=== PATIENT | male | born 1960 | race Caucasian/White ===

== ENCOUNTER 2016-09-17 07:06 | Day surgery (SDC) | payer BC, MEDICARE ==
[2016-09-15 16:27] VITALS: BMI 28.8
[~2016-09-17 07:06] MED LIST: LACTATED RINGERS 1,000 ML IV SCH; LIDOCAINE 1% 20 ML VIAL (10MG/ML) FOR IV START INTRADERMA PRN
[2016-09-17 07:21] VITALS: TEMP 97.2
[2016-09-17 07:28] LABS: Glucose,Whole Blood 82 mg/dL (75-99)
[2016-09-17] MEDS ORDERED: LACTATED RINGERS 1,000 ML IV ONE (07:28)
[2016-09-17] MEDS ORDERED: fentaNYL (PF) 50 MCG/ML 2 ML AMP ONE (07:45)
[2016-09-17] MEDS ORDERED: GLUCAGON 1 MG/ML VIAL ONE (07:45)
[2016-09-17] MEDS ORDERED: MIDAZOLAM 2 MG/2 ML VIAL ONE (07:45)
[2016-09-17] MEDS ORDERED: PROPOFOL 10 MG/ML 20 ML VIAL IV ONE (07:45)
--- NOTE | 2016-09-17 07:53 | P.GSHP ---
History of Present Illness H&P Date: 09/17/16 Chief Complaint: Screening colonoscopy This a 56-year-old male referred for Dr. greenberg. Patient presents today for screening colonoscopy. Past Medical History Past Medical History: Diabetes Mellitus, Hypertension, Sleep Apnea/CPAP/BIPAP Additional Past Medical History / Comment(s): uses cpap,hx colon polyps,daily steroid,diabetic retinopathy,hx peritonitis with peritoneal dialysis cath. History of Any Multi-Drug Resistant Organisms: None Reported Past Surgical History: Heart Catheterization With Stent Additional Past Surgical History / Comment(s): cardiac stents x 3,pancreas and lt kidney transplant,30 eye laser surgeries for diabetic retinopathy,scar tissue surgery post laser surg to giovani eyes, giovani cataracts,peritoneal dialysis cath insertion and removal, vargas cath insertion and removal, tendon repair. Past Anesthesia/Blood Transfusion Reactions: No Reported Reaction Additional Past Anesthesia/Blood Transfusion Reaction / Comment(s): sister rec hep C from blood transfusion Date of Last Stent Placement:: 2002 Smoking Status: Never smoker Past Alcohol Use History: None Reported Past Drug Use History: None Reported - Past Family History Mother Family Medical History: Cancer, Osteoarthritis (OA) Additional Family Medical History / Comment(s): skin Father Family Medical History: Myocardial Infarction (ID) Medications and Allergies Home Medications Medication Instructions Recorded Confirmed Type Aspirin 81 mg PO DAILY 09/15/16 09/15/16 History Calcitriol [Rocaltrol] 0.25 mcg PO QAM 09/15/16 09/15/16 History Ergocalciferol [Vitamin D2 50,000 units PO WE 09/15/16 09/15/16 History (MANUEL)] Levothyroxine Sodium [Synthroid] 100 mcg PO QAM 09/15/16 09/15/16 History Lisinopril [Prinivil] 5 mg PO QAM 09/15/16 09/15/16 History Metoprolol Succinate (ER) [Toprol 100 mg PO QAM 09/15/16 09/15/16 History Xl] Tacrolimus [Prograf] 1.5 mg PO BID 09/15/16 09/15/16 History amLODIPine [Norvasc] 10 mg PO QAM 09/15/16 09/15/16 History predniSONE 5 mg PO QAM 09/15/16 09/15/16 History Allergies Allergy/AdvReac Type Severity Reaction Status Date / Time [id number] Reductase Allergy muscle Verified 09/15/16 16:06 Inhibitor fatigue and pain Surgical - Exam Vital Signs Temp Pulse Resp BP Pulse Ox 97.2 F L 78 18 153/97 98 09/17/16 07:21 09/17/16 07:21 09/17/16 07:21 09/17/16 07:21 09/17/16 07:21 - General well developed, no distress - Eyes PERRL - ENT normal pinna - Neck no masses - Respiratory normal expansion - Cardiovascular Rhythm: regular - Abdomen Abdomen: soft, non tender Assessment and Plan Plan: We'll perform screening colonoscopy.
--- NOTE | 2016-09-17 08:31 | P.OP ---
Date of Procedure: 09/17/16 Preoperative Diagnosis: Screening colonoscopy Postoperative Diagnosis: Moderate diverticulosis Right colon polyp Transverse colon polyp Procedure(s) Performed: Colonoscopy Anesthesia: MAC Surgeon: Holger Torres Pathology: other (Transverse colon polyp, right colon polyp) Condition: stable Disposition: PACU Description of Procedure: The patient's placed on the endoscopy table in the lateral position. He received IV sedation. Digital rectal exam performed which revealed no abnormalities. The prostate was symmetric without nodules. The flexible colonoscope was then placed patient anus and passed throughout the entire colon. The ileocecal valve was visualized. The cecum was seen and there was a small polyp in the cecum was removed the forcep. The scope was then withdrawn. In the proximal transverse colon there was a large peduncular polyp was removed with a snare and forcep. The scope was then brought back and the distal transverse colon appeared normal. In the descending and sigmoid colon is moderate diverticulosis. There were some diverticuli which had very large lumens. The scope was then brought back the rectum and this appeared normal. Scope was withdrawn for patient..
[2016-09-17 08:41] VITALS: RESP 16
[2016-09-17 08:55] VITALS: BP 130/75; PULSE 65
== END 2016-09-17 09:21 | disposition home or self-care (01) ==
LOC: ORWHC2ENDO 07:06
PROVIDERS: ATTEND Surgery
DX: Z12.11 Encounter for screening for malignant neoplasm of colon (principal); D12.3 Benign neoplasm of transverse colon; D12.0 Benign neoplasm of cecum; K57.30 Diverticulosis of large intestine without perforation or abscess without bleeding; I10 Essential (primary) hypertension; G47.33 Obstructive sleep apnea (adult) (pediatric); E11.319 Type 2 diabetes mellitus with unspecified diabetic retinopathy without macular edema; Z95.5 Presence of coronary angioplasty implant and graft; E07.9 Disorder of thyroid, unspecified; Z79.82 Long term (current) use of aspirin; Z79.52 Long term (current) use of systemic steroids; Z79.899 Other long term (current) drug therapy; Z88.8 Allergy status to other drugs, medicaments and biological substances
CPT/HCPCS: 88305; 45380; 45385; J2250; J1610; J3010; J2704

== ENCOUNTER → 2017-11-03 | Outpatient (CLI) | payer BC ==
--- NOTE | 2017-11-04 06:53 | US ---
EXAMINATION TYPE: US renal transplant w dop DATE OF EXAM: 11/03/2017 COMPARISON: Prior renal ultrasound June 05, 2015 CLINICAL HISTORY: N18.3 Chronic kidney disease. CKD, transplant kidney LLQ 2003 EXAM PERFORMED: Grayscale on [place] kidneys and Doppler duplex and Grayscale imaging of the transplan [place] kidney. EXAM MEASUREMENTS: [place] Right Kidney: 5.6 x 3.0 x 2.9cm [place] Left Kidney: 8.9 x 3.8 x 4.9 Transplant Kidney: 11.4 x 4.5 x 4.8cm Location of transplanted kidney: LLQ ANATOMY: [place] Right Kidney: atrophic with cystic areas noted, largest = 1.1 x 1.0 x 1.1cm [place] Left Kidney: atrophic, difficult to visualize with hypoechoic vascular area upper/mid = 6.5 x 4.5 x 4.5cm Transplant Kidney: appears wnl, arterial and venous flow documented Bladder: appears wnl Bilateral Jets seen: no [place] kidneys remain atrophic or small in size with cortical thinning. No gross hydronephrosis is se en. Technologist [place] 2 small simple appearing cyst right kidney. There is suggestion of large mass occupying upper to mid pole level left kidney on current study and warrants follow-up. Bladder is fel t within normal limits. Transplant kidney left pelvis measures 11.4 cm long axis. No gross hydronephr osis is seen. Technologist identifies arterial phasicity and venous return into transplant. IMPRESSION: Left pelvic transplant remain satisfactory in size without hydronephrosis. Atrophic [place] kidneys re demonstrated. Cannot exclude new solid mass upper pole level left kidney, advise further investigatio n with renal protocol contrast-enhanced CT/MRI if possible.
== END | disposition home or self-care (01) ==
LOC: RADUSWWP 16:10
PROVIDERS: ATTEND Internal Medicine Nephrology
DX: N26.1 Atrophy of kidney (terminal) (principal); N18.3 Chronic kidney disease, stage 3 (moderate); Z94.0 Kidney transplant status
CPT/HCPCS: 76776

== ENCOUNTER → 2017-11-30 | Outpatient (CLI) | payer BC ==
--- NOTE | 2017-11-30 23:44 | CT ---
EXAMINATION TYPE: CT abdomen wo con DATE OF EXAM: 11/30/2017 COMPARISON: Renal ultrasound 11/03/2012 HISTORY: 57-year-old male had abnormal US of nontransplanted kidney. TECHNIQUE: Contiguous axial scanning of the abdomen without IV contrast. Coronal and sagittal reconst ructions performed. CT DLP: 579 mGycm Automated exposure control for dose reduction was used. FINDINGS: Heart normal size without pericardial effusion. Tiny hiatal hernia. Strandy atelectasis or scarring a t the lung bases without pleural effusion. Noncontrast appearance of the liver, gallbladder, adrenal glands, and spleen show no gross abnormalit y. The pancreas is markedly atrophic. There is some additional tissue along the right mid and lower a bdomen possibly representing a transplanted pancreas. Partially visualized left lower quadrant transp lant kidney. The [place] right kidney is markedly atrophic. There is a 1 cm hypodense lesion posterior upper pole r ight kidney and 7 mm hypodense lesion anterior lower pole right kidney. Both are too small for accura te CT characterization and probably represent cysts. There is a rather large rounded lesion within the central right kidney that splays the renal cortex. This measures up to 6.1 cm and has intermediate soft tissue attenuation comparison to evaluate for an y available outside priors. There is no left-sided ureteric dilatation. No dilated small bowel, free fluid, or free air. Mild to moderate stool burden without pericolonic in flammatory change. Tiny fatty umbilical hernia. No mesenteric or retroperitoneal lymphadenopathy identified. Moderate atherosclerotic calcifications within the abdominal aorta. Bones: There is a left L5 hemisacralization and mild degenerative disc disease above at L4-L5. No oss eous destructive process. IMPRESSION: 1. A 6.1 cm lesion in the central left kidney splays the cortex and has intermediate, soft tissue att enuation. A complicated parapelvic cyst and a soft tissue mass are both in the differential. Limited assessment without IV contrast. Consider either follow-up renal mass protocol CT or contrast-enhanced MRI. Clinically, if there is low suspicion for malignancy and there is a preference not to administe r IV contrast in this patient, a three-month follow-up noncontrast CT can be performed. 2. Background of end-stage renal disease of the [place] kidneys. 2 hypodense lesions within the right kidney measuring up to 1 cm likely represent cysts. 3. Left lower quadrant transplant kidney. Suspect a right lower quadrant pancreas transplant.
== END | disposition home or self-care (01) ==
LOC: RADCTMAIN 17:34
PROVIDERS: ATTEND Internal Medicine Nephrology
DX: N28.1 Cyst of kidney, acquired (principal); N18.6 End stage renal disease; N28.89 Other specified disorders of kidney and ureter; Z94.0 Kidney transplant status
CPT/HCPCS: 74150

== ENCOUNTER → 2017-12-31 | Outpatient (CLI) | payer BC ==
[2017-12-31 16:03] LABS: Basophils % (A) 0 %; Eosinophils # (A) 0.1 k/uL (0-0.7); Eosinophils % (A) 2 %; HCT 43.9 % (39.0-53.0); HGB 13.7 gm/dL (13.0-17.5); Lymphocytes # (A) 1.5 k/uL (1.0-4.8); Lymphocytes % (A) 20 %; MCH 28.9 pg (25.0-35.0); MCHC 31.1 g/dL (31.0-37.0); MCV 92.9 fL (80.0-100.0); Mean Platelet Volume 6.9; Monocytes # (A) 0.6 k/uL (0-1.0); Monocytes % (A) 9 %; Neutrophils % (A) 67 %; Platelet Count 233 k/uL (150-450); RBC 4.73 m/uL (4.30-5.90); RDW 14.2 % (11.5-15.5); WBC 7.5 k/uL (3.8-10.6)
--- NOTE | 2017-12-31 16:07 | XR ---
EXAMINATION TYPE: XR chest 2V DATE OF EXAM: 12/31/2017 COMPARISON: NONE HISTORY: Presurgical, hypertension TECHNIQUE: Frontal and lateral views of the chest are obtained. FINDINGS: There is no focal air space opacity, pleural effusion, or pneumothorax seen. The cardiac silhouette size is within normal limits. The osseous structures are intact. IMPRESSION: No acute cardiopulmonary process.
[2017-12-31 16:19] LABS: Calcium 9.1 mg/dL (8.4-10.2); Potassium 4.7 mmol/L (3.5-5.1)
== END | disposition home or self-care (01) ==
LOC: LABPAT 14:26
PROVIDERS: ATTEND Urology
DX: Z01.818 Encounter for other preprocedural examination (principal); Z01.812 Encounter for preprocedural laboratory examination; D41.02 Neoplasm of uncertain behavior of left kidney; E21.3 Hyperparathyroidism, unspecified; E03.9 Hypothyroidism, unspecified; R07.9 Chest pain, unspecified
CPT/HCPCS: 71046; 80048; 85025; 93005

== ENCOUNTER 2018-01-08 11:39 | Inpatient (IN) | payer BC ==
[2018-01-04 14:48] VITALS: BMI 28.0
--- NOTE | 2018-01-08 06:37 | P.GSHP ---
History of Present Illness H&P Date: 01/08/18 Chief Complaint: Left renal mass The patient is a 57-year-old white male who underwent a renal transplant in 2003. The transplant kidney was implanted into the left pelvis. He was recently found to have a 6.1 cm left renal mass, suspicious for renal cell carcinoma. He was advised that this is likely malignant in nature, and he was thus advised to undergo a left radical nephrectomy. He has elected to undergo this via an open approach rather than a laparoscopic approach and comes for this reason. - Constitutional Constitutional: Denies chills, Denies fever, Denies weight loss - Cardiovascular Cardiovascular: Reports dyspnea on exertion, Denies chest pain - Gastrointestinal Gastrointestinal: Denies nausea, Denies vomiting - Genitourinary (Female) Genitourinary: Denies dysuria, Denies hematuria Past Medical History Past Medical History: Diabetes Mellitus, Hypertension, Osteoarthritis (OA), Renal Disease, Sleep Apnea/CPAP/BIPAP Additional Past Medical History / Comment(s): uses cpap,hx colon polyps,daily steroid,diabetic retinopathy,hx peritonitis with peritoneal dialysis cath, pancreas and lt kidney transplant, rt foot [place] History of Any Multi-Drug Resistant Organisms: None Reported Past Surgical History: Heart Catheterization With Stent Additional Past Surgical History / Comment(s): cardiac stents x 3,pancreas and lt kidney transplant,30 eye laser surgeries for diabetic retinopathy,scar tissue surgery post laser surg to giovani eyes, giovani cataracts,peritoneal dialysis cath insertion and removal, vargas cath insertion and removal, tendon repair. Past Anesthesia/Blood Transfusion Reactions: No Reported Reaction Additional Past Anesthesia/Blood Transfusion Reaction / Comment(s): sister rec hep C from blood transfusion. pt hx sleep apnea Date of Last Stent Placement:: 2002 Smoking Status: Never smoker - Past Family History Mother Family Medical History: Cancer, Osteoarthritis (OA) Additional Family Medical History / Comment(s): skin Father Family Medical History: Myocardial Infarction (ME) Medications and Allergies Home Medications Medication Instructions Recorded Confirmed Type Aspirin 81 mg PO DAILY 09/15/16 01/04/18 History Calcitriol [Rocaltrol] 0.25 mcg PO QAM 09/15/16 01/04/18 History Ergocalciferol [Vitamin D2 50,000 units PO WE 09/15/16 01/04/18 History (DRISDOL)] Levothyroxine Sodium [Synthroid] 100 mcg PO QAM 09/15/16 01/04/18 History Lisinopril [Prinivil] 5 mg PO QAM 09/15/16 01/04/18 History Metoprolol Succinate (ER) [Toprol 100 mg PO QAM 09/15/16 01/04/18 History Xl] Tacrolimus [Prograf] 1.5 mg PO BID 09/15/16 01/04/18 History amLODIPine [Norvasc] 10 mg PO QAM 09/15/16 01/04/18 History predniSONE 5 mg PO QAM 09/15/16 01/04/18 History Allergies Allergy/AdvReac Type Severity Reaction Status Date / Time [id number]-Ijs-Kvg Reductase Allergy muscle Verified 01/04/18 14:48 Inhibitor fatigue and pain Surgical - Exam - General well developed, well nourished, no distress - Neck no masses, trachea midline - Respiratory normal respiratory effort, clear to auscultation - Cardiovascular Rhythm: regular Abnormal Heart Sounds: no systolic murmur, no diastolic murmur, no rub, no S3 Gallop, no S4 Gallop, no click, no other - Abdomen Abdomen: soft, non tender, no guarding, no rigid, no rebound Hernia: none - Genitourinary normal penis with no external lesions, testicles non-tender - Rectum Rectum: normal sphincter tone, no masses - Psychiatric oriented to time, oriented to person, oriented to place, speech is normal, memory intact Results - Imaging CT scan - abdomen: report reviewed, image reviewed Assessment and Plan (1) Neoplasm of uncertain behavior of left kidney Status: Acute Code(s): D41.02 - NEOPLASM OF UNCERTAIN BEHAVIOR OF LEFT KIDNEY SNOMED Code(s): 88261704 Plan: Left radical nephrectomy. The rationale for the procedure was reviewed in detail with the patient and his . The anticipated perioperative course was reviewed, as were potential risks. These include anesthesia, bleeding, infection, splenic injury, postoperative paralytic ileus, development of adhesions, chylous ascites, and development of incisional hernia. The patient understands that if he is found to have renal cell carcinoma which is not confined to the kidney, he may require adjuvant therapy. It was explained to him that the risk of perioperative complications is increased by the fact that he takes prednisone. He will be given intravenous corticosteroids perioperatively.
[~2018-01-08 11:39] MED LIST changes: +DEXAMETHASONE SOD PHOSPHATE 10 MG/ML 1 ML VIAL IV ONE; -LACTATED RINGERS 1,000 ML IV SCH; -LIDOCAINE 1% 20 ML VIAL (10MG/ML) FOR IV START INTRADERMA PRN; +MIDAZOLAM 2 MG/2 ML VIAL IV PRN; +ONDANSETRON 4 MG/2 ML VIAL IVP ONE; +SCOPOLAMINE 1.5MG/72HR PATCH TRANSDERM ONE; +ceFAZolin IN SWFI 2 GM/20 ML SYRINGE IVP ONE; +fentaNYL (PF) 50 MCG/ML 2 ML AMP IV PRN
[2018-01-08] MEDS: LACTATED RINGERS 1,000 ML IV SCH (13:29)
[2018-01-08] MEDS ORDERED: LIDOCAINE 1% 20 ML VIAL (10MG/ML) FOR IV START INTRADERMA ONE (13:30)
[2018-01-08 13:31] LABS: Glucose,Whole Blood 71 mg/dL (75-99)
[2018-01-08] MEDS ORDERED: HYDROCORTISONE SUCCINATE 100 MG/2 ML VIAL IV ONE (13:42)
[2018-01-08] MEDS ORDERED: ROCURONIUM BROMIDE 10 MG/ML 10 ML VIAL IV ONE (14:20)
[2018-01-08] MEDS ORDERED: MIDAZOLAM 2 MG/2 ML VIAL ONE (14:20)
[2018-01-08] MEDS ORDERED: SUCCINYLCHOLINE CHLORIDE 100 MG/5 ML SYR IV ONE (14:20)
[2018-01-08] MEDS ORDERED: NEOSTIGMINE 1 MG/ML 10 ML VIAL ONE (14:20)
[2018-01-08] MEDS ORDERED: LIDOCAINE 1% INJ 10MG/ML (20 ML MDV) ONE (14:20)
[2018-01-08] MEDS ORDERED: fentaNYL (PF) 50 MCG/ML 2 ML AMP ONE (14:20)
[2018-01-08] MEDS ORDERED: PROPOFOL 10 MG/ML 20 ML VIAL IV ONE (14:20)
[2018-01-08] MEDS ORDERED: MORPHINE SULFATE 10 MG/ML SYRINGE ONE (14:20)
[2018-01-08] MEDS ORDERED: GLYCOPYRROLATE 0.2 MG/ML 2 ML VIAL ONE (14:20)
[2018-01-08] MEDS ORDERED: LACTATED RINGERS 1,000 ML IV ONE ×2 (15:40→16:25)
--- NOTE | 2018-01-08 16:43 | P.OP ---
Date of Procedure: 01/08/18 Preoperative Diagnosis: Left renal mass Postoperative Diagnosis: Same Procedure(s) Performed: Left radical nephrectomy Anesthesia: SIENA Surgeon: Aldo Olmedo [employer] Fundraising Collector #1: Fabio Calzada Estimated Blood Loss (ml): 650 IV fluids (ml): 1,800 Pathology: other (Left kidney) Condition: stable Disposition: PACU Indications for Procedure: The patient is a 57-year-old white male who underwent a renal transplant in 2003. The transplant kidney was implanted into the left pelvis. He was recently found to have a 6.1 cm left renal mass, suspicious for renal cell carcinoma. He was advised that this is likely malignant in nature, and he was thus advised to undergo a left radical nephrectomy. He has elected to undergo this via an open approach rather than a laparoscopic approach and comes for this reason. Operative Findings: No evidence of extrarenal disease. Description of Procedure: The patient was taken to the operating room and placed in the supine position. After being given general anesthesia, the abdomen was prepped and draped sterilely. A left-sided chevron incision was made using the scalpel. The Bovie electrocautery was used to incise the subcutaneous tissues and muscular layers of the abdominal wall down to the peritoneum. The peritoneum was then carefully entered, and opened the full length of the incision. The abdomen was examined, and no abnormalities were noted other than the renal mass. Specifically, there was no evidence of malignancy elsewhere within the abdomen. The Bookwalter retractor was used for exposure. The peritoneum was incised at the line of Toldt, and the left hemicolon was mobilized and the lienocolic attachments were divided. This allowed the colon to be mobilized medially, off of the kidney, exposing the lateral aspect of the aorta. The left renal vein was identified and isolated. The adrenal vein was ligated and divided. Dissection was performed along the lateral aspect of the aorta, cephalad to the left renal vein. This lymphoadipose and sympathetic tissue was clipped and divided. Dissection was then continued inferiorly. The left renal artery was identified, isolated, and ligated using a 2-0 silk tie. The left renal vein was then ligated using 2-0 silk ties, 2 proximally and one distally, then divided. The left renal artery was then likewise ligated twice proximally and once distally prior to dividing it. Dissection was then continued inferiorly, alongside the aorta, with lymphoadipose tissue clipped and divided. The posterior dissection was then performed bluntly, and the tail of Gerota's fascia was then isolated. Within it where the gonadal vein and the ureter. These were ligated distally and clipped proximally prior to dividing them. The posterior dissection was then completed, alongside the psoas muscle, leaving only the superior attachments. The decision was made to preserve the adrenal gland. Therefore, the peritoneum was incised just below the adrenal gland, and the superior attachments were clipped and divided. It should be noted that there was no evidence of adenopathy. Once all attachments were divided, the specimen was removed. The surgical field was examined for hemostasis. Some oozing was noted from the superior attachments, and these areas were identified and either clipped or cauterized, attaining excellent hemostasis. The Bookwalter retractor was removed. The abdominal contents were allowed to return to their normal location. Each individual muscle layer of the anterior abdominal wall was closed using #1 Vicryl suture in a running fashion. Hemostasis within the subcutaneous tissues was excellent. The skin was closed using melia. A sterile gauze dressing was applied over the incision. All sponge and needle counts were correct. The patient tolerated the procedure well was taken to the recovery room in stable condition.
[2018-01-08] MEDS ORDERED: HYDROmorphone 1 MG/ML 1 ML SYRINGE IVP PRN (16:47)
[2018-01-08] MEDS ORDERED: HYDROcodone/APAP 5-325MG 1 EACH TAB PO PRN ×2 (16:47→16:50)
[2018-01-08 16:59] LABS: Glucose,Whole Blood 98 mg/dL (75-99)
[2018-01-08] MEDS: DEXTROSE 5%-0.45% NACL 1,000 ML IV SCH (20:21)
[2018-01-08] MEDS: TACROLIMUS 0.5 MG CAP PO SCH (21:06)
[2018-01-09] MEDS: DEXTROSE 5%-0.45% NACL 1,000 ML IV SCH ×3 (05:29→22:16)
[2018-01-09] MEDS: LACTATED RINGERS 1,000 ML IV SCH (05:33)
[2018-01-09 07:49] LABS: Basophils % (A) 0 %; Eosinophils % (A) 0 %; HCT 41.6 % (39.0-53.0); HGB 13.3 gm/dL (13.0-17.5); Lymphocytes # (A) 0.5 k/uL (1.0-4.8); Lymphocytes % (A) 4 %; MCH 29.8 pg (25.0-35.0); MCHC 32.1 g/dL (31.0-37.0); MCV 92.9 fL (80.0-100.0); Monocytes # (A) 1.1 k/uL (0-1.0); Monocytes % (A) 9 %; Neutrophils # (A) 10.4 k/uL (1.3-7.7); Neutrophils % (A) 85 %; Platelet Count 251 k/uL (150-450); RBC 4.48 m/uL (4.30-5.90); RDW 14.1 % (11.5-15.5); WBC 12.2 k/uL (3.8-10.6)
[2018-01-09] MEDS: amLODIPine 10 MG TAB PO SCH (09:14)
[2018-01-09] MEDS: METOPROLOL SUCCINATE (ER) 100 MG TAB.ER.24H PO SCH (09:14)
[2018-01-09] MEDS: LEVOTHYROXINE 100 MCG TAB PO SCH (09:14)
[2018-01-09] MEDS: LISINOPRIL 5 MG TAB PO SCH (09:14)
[2018-01-09] MEDS: predniSONE 10 MG TAB PO SCH (09:14)
[2018-01-09] MEDS: TACROLIMUS 0.5 MG CAP PO SCH ×2 (09:15→21:16)
[2018-01-09] MEDS: CALCITRIOL 0.25 MCG CAP PO SCH (09:15)
[2018-01-09 09:34] LABS: Calcium 8.6 mg/dL (8.4-10.2); Potassium 5.5 mmol/L (3.5-5.1)
--- NOTE | 2018-01-09 09:51 | P.PN ---
Subjective Progress Note Date: 01/09/18 Principal diagnosis: POD #1, s/p left radical nephrectomy. The patient states that he is sore, but does not report significant discomfort. He is not taking any analgesics. He has not ambulated. He reports BUT denies nausea. He is not hungry. Objective - Vital Signs Vital signs: Vital Signs Temp 98.4 F 01/09/18 07:34 Pulse 114 H 01/09/18 07:34 Resp 18 01/09/18 07:37 BP 121/63 01/09/18 07:34 Pulse Ox 96 01/09/18 07:34 Intake & Output 01/08/18 01/09/18 01/09/18 18:59 06:59 18:59 Intake Total 2024 1600 Output Total 810 550 Balance 1215 1050 Intake: IV 2024 Intake, IV Titration 1600 Amount Dextrose 5%-0.45% NaCl 1, 1600 000 ml @ 100 mls/hr IV . Q10H RYAN Rx#:[id number] Output: Urine 160 550 Estimated Blood Loss 650 Other: Voiding Method Indwelling Catheter Indwelling Catheter - Constitutional General appearance: Present: cooperative, no acute distress - Gastrointestinal Gastrointestinal Comment(s): The dressing is dry and intact. General gastrointestinal: Present: soft. 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 Ambulation was encouraged. He will not be started on diet yet, though he may have ice chips. He will be given prednisone 10 mg daily today and tomorrow, and the dosage will then be decreased to his baseline 5 mg daily.
[2018-01-09] MEDS: HEPARIN SODIUM,PORCINE 5,000 UNIT/ML 1 ML VIAL SQ SCH ×2 (10:03→21:16)
[2018-01-09] MEDS ORDERED: ACETAMINOPHEN TAB 500 MG TAB PO PRN (13:07)
[2018-01-09] MEDS: ACETAMINOPHEN TAB 500 MG TAB PO PRN ×2 (13:18→19:26)
[2018-01-10] MEDS: ACETAMINOPHEN TAB 500 MG TAB PO PRN (02:09)
[2018-01-10] MEDS: LACTATED RINGERS 1,000 ML IV SCH (05:29)
[2018-01-10] MEDS: HEPARIN SODIUM,PORCINE 5,000 UNIT/ML 1 ML VIAL SQ SCH ×2 (08:09→21:38)
[2018-01-10] MEDS: DEXTROSE 5%-0.45% NACL 1,000 ML IV SCH ×2 (08:09→21:33)
[2018-01-10] MEDS: LEVOTHYROXINE 100 MCG TAB PO SCH (08:11)
[2018-01-10] MEDS: METOPROLOL SUCCINATE (ER) 100 MG TAB.ER.24H PO SCH (08:11)
[2018-01-10] MEDS: LISINOPRIL 5 MG TAB PO SCH (08:11)
[2018-01-10] MEDS: CALCITRIOL 0.25 MCG CAP PO SCH (08:11)
[2018-01-10] MEDS: TACROLIMUS 0.5 MG CAP PO SCH ×2 (08:11→21:38)
[2018-01-10] MEDS: amLODIPine 10 MG TAB PO SCH (08:11)
[2018-01-10] MEDS: predniSONE 10 MG TAB PO SCH (08:11)
--- NOTE | 2018-01-10 12:40 | P.PN ---
Subjective Progress Note Date: 01/10/18 Principal diagnosis: POD #2, s/p left radical nephrectomy. The patient does not report significant discomfort. He is not taking any analgesics. He is ambulating. He denies nausea but is not hungry. He is passing flatus. Objective - Vital Signs Vital signs: Vital Signs Temp 98.5 F 01/10/18 08:06 Pulse 83 01/10/18 08:06 Resp 17 01/10/18 08:37 BP 152/94 01/10/18 09:34 Pulse Ox 95 01/10/18 08:06 Intake & Output 01/09/18 01/10/18 01/10/18 18:59 06:59 18:59 Intake Total 600 1600 600 Output Total 1100 1200 Balance -500 400 600 Intake: IV 600 1600 600 Dextrose 5%-0.45% NaCl 1, 600 1600 600 000 ml @ 100 mls/hr IV . Q10H RYAN Rx#:[id number] Output: Urine 1100 1200 Uretheral ([place]) 1100 Other: Voiding Method Indwelling Catheter Indwelling Catheter Indwelling Catheter - Constitutional General appearance: Present: cooperative, no acute distress - Gastrointestinal Gastrointestinal Comment(s): Soft, non-distended. Incision clean and dry. 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 Ambulation was encouraged. He will be started on a full liquid diet, advance as tolerated. His prednisone dosage will be decreased to his baseline 5 mg daily.
[2018-01-10 19:51] VITALS: RESP 18
[2018-01-11] MEDS: DEXTROSE 5%-0.45% NACL 1,000 ML IV SCH (06:07)
[2018-01-11] MEDS: LACTATED RINGERS 1,000 ML IV SCH (06:08)
[2018-01-11] MEDS: LISINOPRIL 5 MG TAB PO SCH (07:32)
[2018-01-11] MEDS: amLODIPine 10 MG TAB PO SCH (07:32)
[2018-01-11] MEDS: METOPROLOL SUCCINATE (ER) 100 MG TAB.ER.24H PO SCH (07:32)
[2018-01-11] MEDS: LEVOTHYROXINE 100 MCG TAB PO SCH (07:32)
[2018-01-11] MEDS: CALCITRIOL 0.25 MCG CAP PO SCH (07:33)
[2018-01-11] MEDS: HEPARIN SODIUM,PORCINE 5,000 UNIT/ML 1 ML VIAL SQ SCH (07:35)
[2018-01-11 07:47] VITALS: BP 176/81; PULSE 82; TEMP 98.3
[2018-01-11] MEDS ORDERED: predniSONE 5 MG TAB PO SCH (09:00)
[2018-01-11] MEDS: TACROLIMUS 0.5 MG CAP PO SCH (09:22)
--- NOTE | 2018-01-11 10:50 | P.DS ---
Providers Date of admission: 01/08/18 11:39 Expected date of discharge: 01/11/18 Attending physician: Aldo Olmedo Primary care physician: Silvia Royal - Discharge Diagnosis(es) (1) Neoplasm of uncertain behavior of left kidney Current Visit: No Status: Acute Hospital Course: Positive admission, the patient underwent an uncomplicated left radical nephrectomy. The perioperative course was unremarkable. He remained afebrile. He did not experience much postoperative discomfort and took analgesics very sparingly. He was started on diet on the second postoperative day, and was tolerating small amounts at the time of discharge. He was drinking plenty of fluids but did not have much of an appetite. He was passing flatus and had 1 bowel movement. He was ambulating without difficulty. The incision was clean and dry at the time of discharge. Procedures: Left Radical Nephrectomy on 01/08/2018. Patient Condition at Discharge: Good Plan - Discharge Summary Discharge Rx Participant: No New Discharge Prescriptions: No Action Aspirin 81 mg PO DAILY Lisinopril [Prinivil] 5 mg PO QAM Levothyroxine Sodium [Synthroid] 100 mcg PO QAM Calcitriol [Rocaltrol] 0.25 mcg PO QAM amLODIPine [Norvasc] 10 mg PO QAM Metoprolol Succinate (ER) [Toprol Xl] 100 mg PO QAM predniSONE 5 mg PO QAM Tacrolimus [Prograf] 1.5 mg PO BID Ergocalciferol [Vitamin D2 (DRISDOL)] 50,000 units PO WE Discharge Medication List Aspirin 81 mg PO DAILY 09/15/16 [History] Calcitriol [Rocaltrol] 0.25 mcg PO QAM 09/15/16 [History] Ergocalciferol [Vitamin D2 (DRISDOL)] 50,000 units PO WE 09/15/16 [History] Levothyroxine Sodium [Synthroid] 100 mcg PO QAM 09/15/16 [History] Lisinopril [Prinivil] 5 mg PO QAM 09/15/16 [History] Metoprolol Succinate (ER) [Toprol Xl] 100 mg PO QAM 09/15/16 [History] Tacrolimus [Prograf] 1.5 mg PO BID 09/15/16 [History] amLODIPine [Norvasc] 10 mg PO QAM 09/15/16 [History] predniSONE 5 mg PO QAM 09/15/16 [History] Follow up Appointment(s)/Referral(s): Aldo Olmedo MD [STAFF PHYSICIAN] - 1 Week Silvia Royal DO [Primary Care Provider] - 1 Week Activity/Diet/Wound Care/Special Instructions: Diet as tolerated. Hold aspirin for 1 week. No lifting, driving, or strenuous activity. Patient should see Dr. Royal this upcoming week if possible, as his blood pressure has been borderline elevated. Discharge Disposition: HOME SELF-CARE
[2018-01-11] MEDS: ACETAMINOPHEN TAB 500 MG TAB PO PRN (12:54)
[2018-01-13] MEDS ORDERED: ERGOCALCIFEROL 50,000 UNIT CAP PO SCH (16:43)
== END 2018-01-11 13:11 | disposition home or self-care (01) | DRG 657 ==
LOC: 2ORMAIN 11:39 → 3SUR 16:29
PROVIDERS: ADMIT Urology; ATTEND Urology
PROC: 0TT10ZZ Resection of Left Kidney, Open Approach (ICD-10-PCS; principal; 2018-01-08 13:30)
DX: D41.02 Neoplasm of uncertain behavior of left kidney (principal); Z94.0 Kidney transplant status; E11.610 Type 2 diabetes mellitus with diabetic neuropathic arthropathy; E11.319 Type 2 diabetes mellitus with unspecified diabetic retinopathy without macular edema; G47.33 Obstructive sleep apnea (adult) (pediatric); I10 Essential (primary) hypertension; M19.90 Unspecified osteoarthritis, unspecified site; I25.10 Atherosclerotic heart disease of native coronary artery without angina pectoris; E07.9 Disorder of thyroid, unspecified; Z79.82 Long term (current) use of aspirin; Z79.890 Hormone replacement therapy; Z79.52 Long term (current) use of systemic steroids; Z79.899 Other long term (current) drug therapy; Z88.8 Allergy status to other drugs, medicaments and biological substances; Z95.5 Presence of coronary angioplasty implant and graft; Z86.010 Personal history of colon polyps; Z98.42 Cataract extraction status, left eye; Z98.41 Cataract extraction status, right eye; Z96.1 Presence of intraocular lens; Z82.49 Family history of ischemic heart disease and other diseases of the circulatory system; Z82.61 Family history of arthritis; Z80.9 Family history of malignant neoplasm, unspecified
CPT/HCPCS: 36415; 80048; 85025; 86850; 86900; 86901

== ENCOUNTER 2018-01-23 18:14 | Emergency (ER) | payer BC ==
[2018-01-23 18:20] VITALS: RESP 16
[2018-01-23] MEDS ORDERED: SODIUM CHLORIDE 0.9% 2,000 ML IV ONE (18:33)
[2018-01-23] MEDS ORDERED: ONDANSETRON 4 MG/2 ML VIAL IVP STA (18:33)
--- NOTE | 2018-01-23 18:37 | ED ---
General Adult HPI - General Chief complaint: Abdominal Pain Stated complaint: ABDOMINAL PAIN Time Seen by Provider: 01/23/18 18:21 Source: patient Mode of arrival: EMS Limitations: no limitations - History of Present Illness Initial comments: Patient is a 57-year-old male, came medical history including a renal and pancreas transplant in 2003, and recent left nephrectomy performed by Dr. Elaine who presents with a chief complaint of nausea and vomiting. The patient states his symptoms started today. He reports that he went to a mormonism outing and had breakfast, he started vomiting around noon. Since then he states that he is no longer nauseated or vomiting but feels very tired. Patient reports lower abdominal pain which she thinks is from throwing up and his recent surgery. Patient states that he takes tacrolimus and prednisone which she has been taking for the last 14 years status post transplant. - Related Data Home Medications Medication Instructions Recorded Confirmed Aspirin 81 mg PO DAILY 09/15/16 01/23/18 Calcitriol [Rocaltrol] 0.25 mcg PO QAM 09/15/16 01/23/18 Ergocalciferol [Vitamin D2 50,000 units PO WE 09/15/16 01/23/18 (DRISDOL)] Levothyroxine Sodium [Synthroid] 100 mcg PO QAM 09/15/16 01/23/18 Lisinopril [Prinivil] 20 mg PO QAM 09/15/16 01/23/18 Metoprolol Succinate (ER) [Toprol 100 mg PO QAM 09/15/16 01/23/18 Xl] Tacrolimus [Prograf] 1.5 mg PO BID 09/15/16 01/23/18 amLODIPine [Norvasc] 10 mg PO QAM 09/15/16 01/23/18 predniSONE 5 mg PO QAM 09/15/16 01/23/18 Previous Rx's Medication Instructions Recorded Ondansetron Odt [Zofran Odt] 4 mg PO Q12HR PRN #12 tab 01/23/18 Allergies Allergy/AdvReac Type Severity Reaction Status Date / Time Jmmlmyj-Fpb-Red Reductase Allergy muscle Verified 01/08/18 17:09 Inhibitor fatigue and pain Review of Systems ROS Statement: Those systems with pertinent positive or pertinent negative responses have been documented in the HPI. ROS Other: All systems not noted in ROS Statement are negative. Gastrointestinal: Reports: abdominal pain, nausea, vomiting Past Medical History Past Medical History: Diabetes Mellitus, Hypertension, Osteoarthritis (OA), Renal Disease, Sleep Apnea/CPAP/BIPAP Additional Past Medical History / Comment(s): uses cpap,hx colon polyps,daily steroid,diabetic retinopathy,hx peritonitis with peritoneal dialysis cath, pancreas and lt kidney transplant, rt foot charcot History of Any Multi-Drug Resistant Organisms: None Reported Past Surgical History: Heart Catheterization With Stent Additional Past Surgical History / Comment(s): cardiac stents x 3,pancreas and lt kidney transplant 2003, eye laser surgeries for diabetic retinopathy,scar tissue surgery post laser surg to giovani eyes, giovani cataracts,peritoneal dialysis cath insertion and removal, vargas cath insertion and removal, tendon repair, Left Kidney 01/08/18 Past Anesthesia/Blood Transfusion Reactions: No Reported Reaction Additional Past Anesthesia/Blood Transfusion Reaction / Comment(s): sister rec hep C from blood transfusion. pt hx sleep apnea Date of Last Stent Placement:: 2002 Past Psychological History: No Psychological Hx Reported Smoking Status: Never smoker Past Alcohol Use History: None Reported Past Drug Use History: None Reported - Past Family History Mother Family Medical History: Cancer, Osteoarthritis (OA) Additional Family Medical History / Comment(s): skin Father Family Medical History: Myocardial Infarction ([place]) General Exam Limitations: no limitations General appearance: alert, in no apparent distress Head exam: Present: atraumatic, normocephalic Eye exam: Present: normal appearance. Absent: scleral icterus ENT exam: Present: normal exam, mucous membranes moist Neck exam: Present: normal inspection Respiratory exam: Present: normal lung sounds bilaterally. Absent: respiratory distress, wheezes, rales Cardiovascular Exam: Present: regular rate, normal rhythm GI/Abdominal exam: Present: soft, tenderness (Patient has tenderness to palpation in the lower abdomen.), other (patient has an old surgical scar and a new surgical scar on his anterior abdomen that is well approximated and appears healthy. ). Absent: distended Rectal exam: Present: deferred Extremities exam: Present: normal inspection Back exam: Present: normal inspection Neurological exam: Present: alert, oriented X3 Psychiatric exam: Present: normal affect, normal mood Skin exam: Present: warm, dry, intact Course Vital Signs 01/23/18 01/23/18 18:17 20:14 Temperature 97.6 F Pulse Rate 84 99 Respiratory 16 16 Rate Blood Pressure 145/89 182/86 O2 Sat by Pulse 95 97 Oximetry Medical Decision Making - Medical Decision Making Patient presents with a chief complaint of nausea, vomiting, and lower abdominal pain. On initial evaluation, vitals are stable, patient is in no acute distress. Given patient's complex medical history he will be evaluated with basic labs including liver profile, lipase, and urinalysis. We'll hold on imaging at present but will likely speak with Dr. Elaine regarding the patient 's recent surgery. 9:07 PM Case discussed with Dr. Elaine, he is recommending an acute abdominal series to rule out obstruction. Images reviewed, abdomen is nonspecific. Patient feels better at this time. Labwork reviewed, all as appear baseline without acute process. Patient was informed of the results. At this time is stable for discharge. He'll be written a prescription for Zofran and instructed to follow up with primary care Dr. Elaine in 1-2 days. He was instructed to return to the emergency department if symptoms worsen or change. - Lab Data Result diagrams: 01/23/18 18:54 01/23/18 18:54 Lab Results 01/23/18 01/23/18 01/23/18 Range/Units 18:54 18:54 20:16 WBC 14.7 H (3.8-10.6) k/uL RBC 4.60 (4.30-5.90) m/uL Hgb 13.8 (13.0-17.5) gm/dL Hct 42.9 (39.0-53.0) % MCV 93.3 (80.0-100.0) fL MCH 30.0 (25.0-35.0) pg MCHC 32.2 (31.0-37.0) g/dL RDW 14.6 (11.5-15.5) % Plt Count 337 (150-450) k/uL Neutrophils % 88 % Lymphocytes % 5 % Monocytes % 5 % Eosinophils % 1 % Basophils % 0 % Neutrophils # 12.9 H (1.3-7.7) k/uL Lymphocytes # 0.7 L (1.0-4.8) k/uL Monocytes # 0.8 (0-1.0) k/uL Eosinophils # 0.1 (0-0.7) k/uL Basophils # 0.0 (0-0.2) k/uL Sodium 141 (137-145) mmol/L Potassium 4.9 (3.5-5.1) mmol/L Chloride 106 (98-107) mmol/L Carbon Dioxide 26 (22-30) mmol/L Anion Gap 9 mmol/L BUN 29 H (9-20) mg/dL Creatinine 1.39 H (0.66-1.25) mg/dL Est GFR (CKD-EPI)AfAm 64 (>60 ml/min/1.73 sqM) Est GFR (CKD-EPI)NonAf 55 (>60 ml/min/1.73 sqM) Glucose 116 H (74-99) mg/dL Calcium 9.2 (8.4-10.2) mg/dL Total Bilirubin 0.8 (0.2-1.3) mg/dL AST 17 (17-59) U/L ALT 23 (21-72) U/L Alkaline Phosphatase 66 (38-126) U/L Total Protein 6.2 L (6.3-8.2) g/dL Albumin 3.6 (3.5-5.0) g/dL Lipase 38 (23-300) U/L Urine Color Yellow Urine Appearance Clear (Clear) Urine pH 7.0 (5.0-8.0) Ur Specific [place] 1.021 (1.001-1.035) Urine Protein 2+ H (Negative) Urine Glucose (UA) Negative (Negative) Urine Ketones 1+ H (Negative) Urine Blood Negative (Negative) Urine Nitrite Negative (Negative) Urine Bilirubin Negative (Negative) Urine Urobilinogen <2.0 (<2.0) mg/dL Ur Leukocyte Esterase Negative (Negative) Urine WBC 1 (0-5) /hpf Urine Mucus Occasional H (None) /hpf Disposition Clinical Impression: Nausea and vomiting, Dehydration Disposition: HOME SELF-CARE Condition: Good Is patient prescribed a controlled substance at d/c from ED?: No Referrals: Silvia Royal DO [Primary Care Provider] - 1-2 days
[2018-01-23 19:24] LABS: Basophils % (A) 0 %; Eosinophils # (A) 0.1 k/uL (0-0.7); Eosinophils % (A) 1 %; HCT 42.9 % (39.0-53.0); HGB 13.8 gm/dL (13.0-17.5); Lymphocytes # (A) 0.7 k/uL (1.0-4.8); Lymphocytes % (A) 5 %; MCHC 32.2 g/dL (31.0-37.0); MCV 93.3 fL (80.0-100.0); Mean Platelet Volume 6.3; Monocytes # (A) 0.8 k/uL (0-1.0); Monocytes % (A) 5 %; Neutrophils # (A) 12.9 k/uL (1.3-7.7); Neutrophils % (A) 88 %; Platelet Count 337 k/uL (150-450); RDW 14.6 % (11.5-15.5); WBC 14.7 k/uL (3.8-10.6)
[2018-01-23 19:36] LABS: Albumin 3.6 g/dL (3.5-5.0); Calcium 9.2 mg/dL (8.4-10.2); Potassium 4.9 mmol/L (3.5-5.1); Total Bilirubin 0.8 mg/dL (0.2-1.3); Total Protein 6.2 g/dL (6.3-8.2)
[2018-01-23 20:29] LABS: Appearance,Urine Clear (Clear); Bilirubin,Urine Negative (Negative); Blood,Urine Negative (Negative); Color,Urine Yellow; Glucose,Urine (UA) Negative (Negative); Ketones,Urine 1+ (Negative); Leukocyte Esterase,Urine Negative (Negative); Mucus,Urine Occasional /hpf; Nitrite,Urine Negative (Negative); Protein,Urine 2+ (Negative); Specific Gravity,Urine 1.021 (1.001-1.035); Urobilinogen,Urine <2.0 mg/dL (<2.0)
--- NOTE | 2018-01-23 21:02 | XR ---
EXAMINATION TYPE: XR abdomen acute w cxr DATE OF EXAM: 01/23/2018 COMPARISON: NONE HISTORY: Nausea and vomiting TECHNIQUE: Chest x-ray with supine and upright abdomen FINDINGS: There is no heart failure nor confluent pneumonic infiltrate. There are small linear density at the l eft lung base consistent with scarring. Bowel gas pattern is normal. There is no sign of intestinal o bstruction or pneumoperitoneum. Fecal pattern is normal. There is no evidence of a mass. There are ph leboliths in the pelvis. There are no pathologic calcifications over the kidneys. There are numerous surgical clips in the left upper quadrant. IMPRESSION: Nonacute abdomen. No active cardiopulmonary disease.
[2018-01-23 21:16] VITALS: BP 148/79; PULSE 91; TEMP 98.5
== END 2018-01-23 21:23 | disposition home or self-care (01) ==
LOC: EC 18:14
DX: E86.0 Dehydration (principal); R11.2 Nausea with vomiting, unspecified; R10.30 Lower abdominal pain, unspecified; I10 Essential (primary) hypertension; E11.319 Type 2 diabetes mellitus with unspecified diabetic retinopathy without macular edema; M19.90 Unspecified osteoarthritis, unspecified site; G47.30 Sleep apnea, unspecified; Z88.8 Allergy status to other drugs, medicaments and biological substances; Z79.52 Long term (current) use of systemic steroids; Z79.82 Long term (current) use of aspirin; Z79.899 Other long term (current) drug therapy; Z99.89 Dependence on other enabling machines and devices; Z98.890 Other specified postprocedural states; Z94.83 Pancreas transplant status
CPT/HCPCS: 36415; 80053; 83690; 85025; 81001; 74022; 99284; 96374; 96361 ×2; J2405

== ENCOUNTER 2020-06-03 01:28 | Emergency (ER) | payer BC ==
[2020-06-03 01:38] VITALS: RESP 18
[2020-06-03 02:17] LABS: Basophils # (A) 0.1 k/uL (0-0.2); Basophils % (A) 1 %; Eosinophils # (A) 0.1 k/uL (0-0.7); Eosinophils % (A) 1 %; HCT 42.3 % (39.0-53.0); HGB 13.6 gm/dL (13.0-17.5); Lymphocytes # (A) 1.2 k/uL (1.0-4.8); Lymphocytes % (A) 13 %; MCH 28.4 pg (25.0-35.0); MCV 88.5 fL (80.0-100.0); Mean Platelet Volume 7.1; Monocytes # (A) 1.1 k/uL (0-1.0); Monocytes % (A) 11 %; Neutrophils # (A) 6.5 k/uL (1.3-7.7); Neutrophils % (A) 69 %; Platelet Count 268 k/uL (150-450); RBC 4.78 m/uL (4.30-5.90); RDW 14.6 % (11.5-15.5); WBC 9.4 k/uL (3.8-10.6)
[2020-06-03 02:23] LABS: ALT 17 U/L (4-49); AST 27 U/L (17-59); African American GFR (CKD) 60 (>60 ml/min/1.73 sqM); Albumin 3.5 g/dL (3.5-5.0); Alkaline Phosphatase 63 U/L (38-126); Anion Gap 8 mmol/L; Blood Urea Nitrogen 30 mg/dL (9-20); C Reactive Protein <5.0 mg/L (<10.0); Calcium 8.8 mg/dL (8.4-10.2); Carbon Dioxide 20 mmol/L (22-30); Chloride 108 mmol/L (98-107); Glucose 99 mg/dL (74-99); LDH 442 U/L (313-618); Magnesium 1.7 mg/dL (1.6-2.3); Non-African American GFR(CKD) 52 (>60 ml/min/1.73 sqM); Potassium 4.2 mmol/L (3.5-5.1); Sodium 136 mmol/L (137-145); Total Bilirubin 0.4 mg/dL (0.2-1.3); Total Protein 6.5 g/dL (6.3-8.2)
--- NOTE | 2020-06-03 02:32 | XR ---
EXAM: XR Chest, 1 View CLINICAL HISTORY: ITS.REASON XR Reason: Suspected COVID-19 pneumonia TECHNIQUE: Frontal view of the chest. COMPARISON: 12/31/2017 FINDINGS: Lungs: Similar subsegmental small linear changes at the left lung base, stable in appearance. No focal consolidation. The pulmonary vasculature demonstrates no significant radiographic abnormality. Pleural space: Unremarkable. No pneumothorax. No large pleural effusion. Heart: Unremarkable. No cardiomegaly. Mediastinum: No significant abnormality identified. The trachea is midline. Bones/joints: Unremarkable. IMPRESSION: Stable subsegmental atelectasis at the left lung base. No focal consolidation or acute cardiopulmonary process identified.
--- NOTE | 2020-06-03 02:56 | ED ---
Dizziness HPI - General Chief Complaint: Dizziness Stated Complaint: +COVID, dizziness Time Seen by Provider: 06/03/20 01:31 Source: patient, EMS Mode of arrival: EMS Limitations: no limitations - History of Present Illness Initial Comments: 59-year-old male patient presents to the emergency department today for evaluation of weakness. Patient states that he was diagnosed with COVID-19 on Thursday. States that today at home he was coming from his room to check on his in the living room when he lost strength in his legs and he fell to the floor. He denies any unilateral weakness. Denies numbness or tingling to the extremities. Denies hitting his head or sustaining any injuries with the fall. Denies loss of consciousness. Patient denies any chest pain or shortness of breath. States he does have an ongoing cough. Has had low grade fever. Denies sputum production. Denies any nausea, vomiting, constipation, diarrhea. Denies abdominal pain. Patient denies any recent rash, cough, chest pain, abdominal pain, back pain, numbness, tingling, hematuria, dysuria, urinary urgency, urinary frequency, headache, visual changes, or any other complaints. - Related Data Home Medications Medication Instructions Recorded Confirmed Aspirin 81 mg PO DAILY 09/15/16 01/23/18 Ergocalciferol [Vitamin D2 50,000 units PO WE 09/15/16 01/23/18 (DRISDOL)] Levothyroxine Sodium [Synthroid] 100 mcg PO QAM 09/15/16 01/23/18 Metoprolol Succinate (ER) [Toprol 100 mg PO QAM 09/15/16 01/23/18 Xl] Tacrolimus [Prograf] 1.5 mg PO BID 09/15/16 01/23/18 amLODIPine [Norvasc] 10 mg PO QAM 09/15/16 01/23/18 calcitrioL [Rocaltrol] 0.25 mcg PO QAM 09/15/16 01/23/18 lisinopriL [Prinivil] 20 mg PO QAM 09/15/16 01/23/18 predniSONE 5 mg PO QAM 09/15/16 01/23/18 Previous Rx's Medication Instructions Recorded Ondansetron Odt [Zofran Odt] 4 mg PO Q12HR PRN #12 tab 01/23/18 Allergies Allergy/AdvReac Type Severity Reaction Status Date / Time Sitskhv-Bpe-Nyp Reductase Allergy muscle Verified 06/03/20 01:38 Inhibitor fatigue and pain Review of Systems ROS Statement: Those systems with pertinent positive or pertinent negative responses have been documented in the HPI. ROS Other: All systems not noted in ROS Statement are negative. Past Medical History Past Medical History: Diabetes Mellitus, Hypertension, Osteoarthritis (OA), Renal Disease, Sleep Apnea/CPAP/BIPAP Additional Past Medical History / Comment(s): uses cpap,hx colon polyps,daily steroid,diabetic retinopathy,hx peritonitis with peritoneal dialysis cath, pancreas and lt kidney transplant, rt foot [place] History of Any Multi-Drug Resistant Organisms: None Reported Past Surgical History: Heart Catheterization With Stent Additional Past Surgical History / Comment(s): cardiac stents x 3,pancreas and lt kidney transplant 2003, eye laser surgeries for diabetic retinopathy,scar tissue surgery post laser surg to giovani eyes, giovani cataracts,peritoneal dialysis cath insertion and removal, vargas cath insertion and removal, tendon repair, Left Kidney 01/08/18 Past Anesthesia/Blood Transfusion Reactions: No Reported Reaction Additional Past Anesthesia/Blood Transfusion Reaction / Comment(s): sister rec hep C from blood transfusion. pt hx sleep apnea Date of Last Stent Placement:: 2002 Past Psychological History: No Psychological Hx Reported Smoking Status: Never smoker Past Alcohol Use History: None Reported Past Drug Use History: None Reported - Past Family History Mother Family Medical History: Cancer, Osteoarthritis (OA) Additional Family Medical History / Comment(s): skin Father Family Medical History: Myocardial Infarction ([place]) General Exam Limitations: no limitations General appearance: alert, in no apparent distress, other (This is a well- developed, well-nourished adult male patient in no acute distress.) Course Vital Signs 06/03/20 06/03/20 01:32 03:41 Temperature 98.6 F 98.2 F Pulse Rate 87 98 Respiratory 18 18 Rate Blood Pressure 132/90 136/78 O2 Sat by Pulse 95 97 Oximetry EKG Findings - EKG Comments: EKG Findings:: EKG obtained at 0145 shows normal sinus rhythm with a ventricular rate of 89, [place] interval 190, QRS duration 82, QT 336, QTc 408. No evidence of ST elevation or depression. Medical Decision Making - Medical Decision Making 59-year-old male patient percents to the emergency department today for evaluation of weakness in his legs. Patient states that he was diagnosed with COVID-19 on Thursday. States he was walking from his bedroom to the living room recheck in his when his legs gave out and he fell to the floor. Physical examination is unremarkable. He is neurologically intact with no focal deficits. Labs reviewed and are unremarkable. Chest x-ray is negative. Vital signs within normal ranges. Was able to ambulate in the department without diff iculty. He'll be discharged follow up with his primary care physician for recheck in 1-2 days. Return parameters were discussed in detail. He verbalizes understanding and agrees with this plan. - Lab Data Result diagrams: 06/03/20 02:03 06/03/20 02:03 Lab Results 06/03/20 06/03/20 06/03/20 Range/Units 02:03 02:03 02:03 WBC 9.4 (3.8-10.6) k/uL RBC 4.78 (4.30-5.90) m/uL Hgb 13.6 (13.0-17.5) gm/dL Hct 42.3 (39.0-53.0) % MCV 88.5 (80.0-100.0) fL MCH 28.4 (25.0-35.0) pg MCHC 32.0 (31.0-37.0) g/dL RDW 14.6 (11.5-15.5) % Plt Count 268 (150-450) k/uL MPV 7.1 Neutrophils % 69 % Lymphocytes % 13 % Monocytes % 11 % Eosinophils % 1 % Basophils % 1 % Neutrophils # 6.5 (1.3-7.7) k/uL Lymphocytes # 1.2 (1.0-4.8) k/uL Monocytes # 1.1 H (0-1.0) k/uL Eosinophils # 0.1 (0-0.7) k/uL Basophils # 0.1 (0-0.2) k/uL D-Dimer 0.49 (<0.60) mg/L FEU Sodium 136 L (137-145) mmol/L Potassium 4.2 (3.5-5.1) mmol/L Chloride 108 H (98-107) mmol/L Carbon Dioxide 20 L (22-30) mmol/L Anion Gap 8 mmol/L BUN 30 H (9-20) mg/dL Creatinine 1.45 H (0.66-1.25) mg/dL Est GFR (CKD-EPI)AfAm 60 (>60 ml/min/1.73 sqM) Est GFR (CKD-EPI)NonAf 52 (>60 ml/min/1.73 sqM) Glucose 99 (74-99) mg/dL Plasma Lactic Acid Nasir (0.7-2.0) mmol/L Calcium 8.8 (8.4-10.2) mg/dL Magnesium 1.7 (1.6-2.3) mg/dL Total Bilirubin 0.4 (0.2-1.3) mg/dL AST 27 (17-59) U/L ALT 17 (4-49) U/L Alkaline Phosphatase 63 (38-126) U/L Lactate Dehydrogenase 442 (313-618) U/L C-Reactive Protein <5.0 (<10.0) mg/L Total Protein 6.5 (6.3-8.2) g/dL Albumin 3.5 (3.5-5.0) g/dL 06/03/20 Range/Units 02:03 WBC (3.8-10.6) k/uL RBC (4.30-5.90) m/uL Hgb (13.0-17.5) gm/dL Hct (39.0-53.0) % MCV (80.0-100.0) fL MCH (25.0-35.0) pg MCHC (31.0-37.0) g/dL RDW (11.5-15.5) % Plt Count (150-450) k/uL MPV Neutrophils % % Lymphocytes % % Monocytes % % Eosinophils % % Basophils % % Neutrophils # (1.3-7.7) k/uL Lymphocytes # (1.0-4.8) k/uL Monocytes # (0-1.0) k/uL Eosinophils # (0-0.7) k/uL Basophils # (0-0.2) k/uL D-Dimer (<0.60) mg/L FEU Sodium (137-145) mmol/L Potassium (3.5-5.1) mmol/L Chloride (98-107) mmol/L Carbon Dioxide (22-30) mmol/L Anion Gap mmol/L BUN (9-20) mg/dL Creatinine (0.66-1.25) mg/dL Est GFR (CKD-EPI)AfAm (>60 ml/min/1.73 sqM) Est GFR (CKD-EPI)NonAf (>60 ml/min/1.73 sqM) Glucose (74-99) mg/dL Plasma Lactic Acid Ans[place] 0.8 (0.7-2.0) mmol/L Calcium (8.4-10.2) mg/dL Magnesium (1.6-2.3) mg/dL Total Bilirubin (0.2-1.3) mg/dL AST (17-59) U/L ALT (4-49) U/L Alkaline Phosphatase (38-126) U/L Lactate Dehydrogenase (313-618) U/L C-Reactive Protein (<10.0) mg/L Total Protein (6.3-8.2) g/dL Albumin (3.5-5.0) g/dL Disposition Clinical Impression: COVID-19, Weakness Disposition: HOME SELF-CARE Condition: Good Instructions (If sedation given, give patient instructions): Viral Syndrome (ED), Weakness (ED) Additional Instructions: Follow-up with your primary care physician for recheck in 1-2 days. Return to the emergency department for any new, worsening, or concerning symptoms. Is patient prescribed a controlled substance at d/c from ED?: No Referrals: Silvia Royal DO [Primary Care Provider] - 1-2 days Time of Disposition: 03:38
[2020-06-03 03:46] VITALS: BP 136/78; PULSE 98; TEMP 98.2
== END 2020-06-03 04:10 | disposition home or self-care (01) ==
LOC: EC 01:28
DX: U07.1 COVID-19 (principal); I10 Essential (primary) hypertension; M19.90 Unspecified osteoarthritis, unspecified site; G47.30 Sleep apnea, unspecified; Z79.82 Long term (current) use of aspirin; Z79.52 Long term (current) use of systemic steroids; Z79.890 Hormone replacement therapy; Z79.899 Other long term (current) drug therapy; Z88.8 Allergy status to other drugs, medicaments and biological substances; Z99.89 Dependence on other enabling machines and devices; Z87.19 Personal history of other diseases of the digestive system; Z94.0 Kidney transplant status; Z95.5 Presence of coronary angioplasty implant and graft; W18.30XA Fall on same level, unspecified, initial encounter
CPT/HCPCS: 36415; 71045; 80053; 83605; 83615; 83735; 85025; 85379; 86140; 93005; 99284